=== PATIENT | female | born 1965 | race Caucasian/White ===

== ENCOUNTER 2017-06-14 00:01 | Emergency (ER) | payer BC ==
[2017-06-14 00:05] VITALS: RESP 18
--- NOTE | 2017-06-14 00:43 | ED ---
Fall HPI - General Chief Complaint: Fall Stated Complaint: fall Time Seen by Provider: 06/14/17 00:19 Source: patient, RN notes reviewed Mode of arrival: ambulatory - History of Present Illness Initial Comments: Patient is a 51-year-old female presents emergency room evaluation of fall injury. Patient states she was standing up after she shouldn't have been standing on and fell landing directly on her tailbone. Patient states she feels very nauseous after the incident happened. Patient denies head trauma. Patient denies headache, dizziness, chest pain, shortness of breath. Patient states she's continued having pain and swelling over her tailbone. Patient denies any numbness or tingling going down her legs. Patient denies saddle anesthesia. Patient denies urinary or fecal incontinence. Patient denies taking anything for pain after the incident. Patient states the incident happened about 2 hours ago. - Related Data Home Medications Medication Instructions Recorded Confirmed Venlafaxine HCl [Effexor] 22 mg PO QAM 08/02/14 08/03/14 Rizatriptan Benzoate [Maxalt] 10 mg PO Q12HR PRN 08/03/14 08/03/14 Previous Rx's Medication Instructions Recorded Acetaminophen with Codeine 1 tab PO Q4H PRN #12 tab 06/14/17 [Tylenol w/codeine #3] Allergies Allergy/AdvReac Type Severity Reaction Status Date / Time No Known Allergies Allergy Verified 06/14/17 00:05 Review of Systems ROS Statement: Those systems with pertinent positive or pertinent negative responses have been documented in the HPI. ROS Other: All systems not noted in ROS Statement are negative. Past Medical History Additional Past Medical History / Comment(s): PELVIC PAIN, BLOOD TO STOOL X 1, HAVING FEELING OF NOT EMPTYING BOWEL, STEROID W/IN 3 MOS History of Any Multi-Drug Resistant Organisms: None Reported Past Surgical History: Tubal Ligation Additional Past Surgical History / Comment(s): MONARC PROCEDURE, CYSTOSCOPY Past Anesthesia/Blood Transfusion Reactions: Motion Sickness, Postoperative Nausea & Vomiting (PONV) Past Psychological History: Depression Smoking Status: Never smoker Past Alcohol Use History: None Reported Past Drug Use History: None Reported General Exam - General Exam Comments Initial Comments: Sitting in exam room, no acute distress. Limitations: no limitations General appearance: alert, in no apparent distress Head exam: Present: atraumatic, normocephalic, normal inspection Eye exam: Present: normal appearance ENT exam: Present: normal exam Neck exam: Present: normal inspection Respiratory exam: Present: normal lung sounds bilaterally. Absent: respiratory distress Cardiovascular Exam: Present: regular rate, normal rhythm, normal heart sounds Extremities exam: Present: normal inspection Back exam: Present: vertebral tenderness (Swelling, tenderness and bruising over coccyx bone) Neurological exam: Present: alert, oriented X3, CN II-XII intact, normal gait Psychiatric exam: Present: normal affect, normal mood Skin exam: Present: warm, dry, intact, normal color. Absent: rash Course Vital Signs 06/14/17 06/14/17 00:02 02:41 Temperature 98.1 F 98.7 F Pulse Rate 76 79 Respiratory 18 18 Rate Blood Pressure 124/76 113/73 O2 Sat by Pulse 100 99 Oximetry Medical Decision Making - Medical Decision Making Patient is a 51-year-old female presents emergency room for evaluation of fall injury. Patient complaining of tailbone pain. X-ray showed no acute findings. Patient does have significant swelling and bruising of the tailbone. Even though x-ray negative for any acute fractures, possible suspected fracture of the coccyx bone. Patient advised follow-up with personnel security specialist. Patient is sent home with pain medications. Patient states she understands everything that was discussed with her. Return parameters discussed. Case discussed with Dr. Abraham. - Radiology Data Radiology results: report reviewed, image reviewed Disposition Clinical Impression: Coccyx contusion, Fall Disposition: HOME SELF-CARE Condition: Good Instructions: Coccyx Injury (ED) Additional Instructions: Tylenol or Motrin as needed for discomfort. Ice on and off for 10-15 minutes for the next 24-48 hours. Please follow-up with personnel security specialist for further evaluation. If new symptoms develop or symptoms worsen, please return to the ER. Prescriptions: Acetaminophen with Codeine [Tylenol w/codeine #3] 1 tab PO Q4H PRN #12 tab PRN Reason: Pain Referrals: Micheal Malave PAC [PHYSICIAN [employer]OR] - 1-2 days Time of Disposition: 02:33
--- NOTE | 2017-06-14 02:13 | XR ---
EXAM: XR Lumbar Spine, 4 or 5 Views CLINICAL HISTORY: Reason: Pain TECHNIQUE: Frontal, lateral and oblique views of the lumbar spine. COMPARISON: Radiographs lumbar spine, 10/02/2011. FINDINGS: Vertebrae: Vertebral body heights are maintained. Lumbar spine is well aligned. Vertical lucency through the left transverse process of L1, also seen on 10/02/11, although more apparent on today's exam. Disc spaces: No acute findings. Soft tissues: Unremarkable. IMPRESSION: 1. Vertical lucency through the left transverse process of L1, also seen on 10/02/11, although more apparent on today's exam. This is favored to be chronic but correlate for any focal tenderness. 2. Vertebral body heights and alignment are maintained.
--- NOTE | 2017-06-14 02:30 | XR ---
EXAM: XR Sacrum and Coccyx, 2 or more Views CLINICAL HISTORY: Reason: Pain TECHNIQUE: Frontal and lateral views of the sacrum and coccyx. COMPARISON: No relevant prior studies available. FINDINGS: Sacrum/coccyx: Unremarkable as visualized. No acute fracture detected. IMPRESSION: No radiographic evidence for acute fracture.
[2017-06-14] MEDS ORDERED: ACET/COD 300 MG/30 MG STARTER PACK 6 TAB BTL PO STA (02:38)
[2017-06-14] MEDS ORDERED: ONDANSETRON 4 MG ODT STARTER PACK 2 TAB BTL PO STA (02:39)
[2017-06-14 02:43] VITALS: BP 113/73; PULSE 79; TEMP 98.7
== END 2017-06-14 02:56 | disposition home or self-care (01) ==
LOC: EC 00:01
DX: S30.0XXA Contusion of lower back and pelvis, initial encounter (principal); R11.0 Nausea; F32.9 Major depressive disorder, single episode, unspecified; Z79.899 Other long term (current) drug therapy; W17.89XA Other fall from one level to another, initial encounter; Y92.009 Unspecified place in unspecified non-institutional (private) residence as the place of occurrence of the external cause
CPT/HCPCS: 99283; 72110; 72220; S0119

== ENCOUNTER 2018-01-24 11:56 | Emergency (ER) | payer BC ==
[2018-01-24] MEDS ORDERED: ASPIRIN 81 MG PO STA (12:25)
[2018-01-24 12:29] VITALS: RESP 16
[2018-01-24 12:39] LABS: Basophils % (A) 1 %; Eosinophils # (A) 0.1 k/uL (0-0.7); Eosinophils % (A) 2 %; HCT 40.2 % (34.0-46.0); HGB 13.3 gm/dL (11.4-16.0); Lymphocytes # (A) 1.6 k/uL (1.0-4.8); Lymphocytes % (A) 39 %; MCH 28.9 pg (25.0-35.0); MCV 87.5 fL (80.0-100.0); Mean Platelet Volume 8.1; Monocytes # (A) 0.3 k/uL (0-1.0); Monocytes % (A) 8 %; Neutrophils % (A) 47 %; Platelet Count 183 k/uL (150-450); RBC 4.59 m/uL (3.80-5.40); RDW 12.7 % (11.5-15.5); WBC 4.2 k/uL (3.8-10.6)
--- NOTE | 2018-01-24 12:49 | XR ---
EXAMINATION TYPE: XR chest 2V DATE OF EXAM: 01/24/2018 COMPARISON: 01/20/2013 TECHNIQUE: PA and lateral views submitted. HISTORY: Chest pain FINDINGS: The lungs are clear and there is no pneumothorax, pleural effusion, or focal pneumonia. Hyperinflat ion compatible COPD. Biapical pleural thickening. Degenerative change of the spine. IMPRESSION: 1. No acute process. Diffuse emphysematous changes correlate for COPD.
[2018-01-24 12:52] LABS: Partial Thromboplastin Time 23.4 sec (22.0-30.0); Prothrombin Time 9.8 sec (9.0-12.0)
[2018-01-24 12:55] LABS: ALT 30 U/L (9-52); AST 28 U/L (14-36); Albumin 4.8 g/dL (3.5-5.0); Alkaline Phosphatase 79 U/L (38-126); Anion Gap 12 mmol/L; Blood Urea Nitrogen 16 mg/dL (7-17); Calcium 10.6 mg/dL (8.4-10.2); Carbon Dioxide 28 mmol/L (22-30); Chloride 102 mmol/L (98-107); Glucose 91 mg/dL (74-99); Lipase 106 U/L (23-300); Magnesium 1.9 mg/dL (1.6-2.3); Potassium 4.3 mmol/L (3.5-5.1); Sodium 142 mmol/L (137-145); Total Bilirubin 0.9 mg/dL (0.2-1.3); Total Protein 8.3 g/dL (6.3-8.2)
--- NOTE | 2018-01-24 14:09 | ED ---
Chest Pain HPI - General Chief Complaint: Chest Pain Stated Complaint: CHEST PAIN Time Seen by Provider: 01/24/18 12:13 Source: patient Mode of arrival: ambulatory Limitations: no limitations - History of Present Illness Initial Comments: Patient complains of chest pain. Pain is in the middle of the chest. It radiates to her left arm and jaw. She has no shortness of breath. She has no pain or swelling in the arms or legs. She has no palpitations. She has no headache. She does not recall any specific exacerbating or relieving factors. She has no nausea or vomiting. She has no sick contacts or travel. - Related Data Home Medications Medication Instructions Recorded Confirmed Ginseng 100 mg PO DAILY 01/24/18 01/24/18 Multivitamins, Thera [Multivitamin 1 tab PO DAILY 01/24/18 01/24/18 (formulary)] [place]-3 Fatty Acids/Fish Oil [Fish 1 cap PO DAILY 01/24/18 01/24/18 Oil 1,000 mg Softgel] Venlafaxine HCl ER [Effexor XR] 37.5 mg PO DIRECTED 01/24/18 01/24/18 Allergies Allergy/AdvReac Type Severity Reaction Status Date / Time No Known Allergies Allergy Verified 01/24/18 12:27 Review of Systems ROS Statement: Those systems with pertinent positive or pertinent negative responses have been documented in the HPI. ROS Other: All systems not noted in ROS Statement are negative. EKG Findings - EKG Comments: EKG Findings:: Twelve-lead EKG shows ventricular rate 63 bpm, normal [place] interval , normal QS complexes, no ST elevation or depression, interpreted by me as normal sinus rhythm. Past Medical History Additional Past Medical History / Comment(s): PELVIC PAIN, BLOOD TO STOOL X 1, HAVING FEELING OF NOT EMPTYING BOWEL, STEROID W/IN 3 MOS History of Any Multi-Drug Resistant Organisms: None Reported Past Surgical History: Tubal Ligation Additional Past Surgical History / Comment(s): MONARC PROCEDURE, CYSTOSCOPY bladder sling Past Anesthesia/Blood Transfusion Reactions: Motion Sickness, Postoperative Nausea & Vomiting (PONV) Past Psychological History: Depression Smoking Status: Never smoker Past Alcohol Use History: None Reported Past Drug Use History: None Reported General Exam Limitations: no limitations General appearance: alert, in no apparent distress Head exam: Present: atraumatic, normocephalic, normal inspection Eye exam: Present: normal appearance, PERRL, EOMI. Absent: scleral icterus, conjunctival injection, periorbital swelling ENT exam: Present: normal exam, mucous membranes moist Neck exam: Present: normal inspection. Absent: tenderness, meningismus, lymphadenopathy Respiratory exam: Present: normal lung sounds bilaterally. Absent: respiratory distress, wheezes, rales, rhonchi, stridor Cardiovascular Exam: Present: regular rate, normal rhythm, normal heart sounds. Absent: systolic murmur, diastolic murmur, rubs, gallop, clicks GI/Abdominal exam: Present: soft, normal bowel sounds. Absent: distended, tenderness, guarding, rebound, rigid Extremities exam: Present: normal inspection, full ROM, normal capillary refill. Absent: tenderness, pedal edema, joint swelling, calf tenderness Back exam: Present: normal inspection Neurological exam: Present: alert, oriented X3, CN II-XII intact Psychiatric exam: Present: normal affect, normal mood Skin exam: Present: warm, dry, intact, normal color. Absent: rash Course Vital Signs 01/24/18 01/24/18 12:04 12:28 Temperature 97.7 F Pulse Rate 91 85 Respiratory 18 16 Rate Blood Pressure 134/78 127/85 O2 Sat by Pulse 100 100 Oximetry Chest Pain MDM - MDM Patient complains of chest pain. I am concern for ACS. Patient states she hasn 't family history of cardiac disease. Patient will be admitted for observation. Disposition Clinical Impression: Chest pain Disposition: ADMITTED IP TO THIS [facility] Condition: Fair Instructions: Chest Pain (ED) Referrals: None,Stated [Primary Care Provider] - 1-2 days Time of Disposition: 14:08
[2018-01-24 15:23] VITALS: PULSE 81
--- NOTE | 2018-01-24 15:30 | P.HPIM ---
History of Present Illness H&P Date: 01/24/18 Chief Complaint: chest pain Patient is a 52-year-old female with a past medical history of depression who presented to the emergency department with complaints of chest pain. In the ER she underwent an extensive evaluation. On arrival her vital signs were within normal limits. Laboratory analysis was unremarkable. Troponin was negative. Chest x-ray showed possible emphysematous changes. EKG revealed normal sinus rhythm at a rate of [address]-T wave changes, normal intervals, normal axis. Patient was seen and examined at bedside and emergency department. She is wanting to go home and have outpatient stress testing done. She states that for the last 2 weeks she's been having intermittent chest pain. She states she had a similar event in her 20s and went through cardiac testing all of which was negative. She can describes left-sided chest pain that feels like pinching. She states that it has been radiating to her left arm and left jaw intermittently. She describes a toothache. She states it happened last night and then again this morning. She states last night she may have been short of breath that she is unsure. She denies any significant shortness of breath, lightheadedness, dizziness, numbness, tingling, diaphoresis , and syncope. She states it's been happening 2-3 times daily. She states that it lasts only a few minutes when it comes on. She states it is intermittent and there is nothing that precipitates it. It resolved spontaneously. She does not take any daily aspirin. She states that she decided come to the hospital today she was in a meeting and they stated that a coworker had suddenly, they thought it was from heart disease and she got nervous and decided to come to the hospital. She has seen Dr. Tong in the past but has not needed to see him consistently secondary to not having no chronic medical conditions. About 6 months ago she has been trying to come off of her Effexor and now taking 37.5 mg 2 days on one day off. She denies any significant family history of coronary artery disease or myocardial infarction. Her father did have carotid disease. Review of Systems General: no fever/chills, no rigors, no weight loss/weight gain, no unusual fatigue Eyes: no noticeable visual changes, no loss of vision ENT: no rhinorrhea, no congestion, no sore throat Cardiovascular: + chest pain, + intermittent left arm pain, no palpitations, no preyncope/syncope, no edema Pulmonary: no shortness of breath, no wheezing, no cough Abdominal: no abdominal pain, no constipation, no diarrhea, no vomiting, no nausea Genitourinary: no dysuria, no urinary frequency, no unusual discharge/odor Neuro: no unusual paresthesias, no unusual paresis/paralysis, no headache Dermatologic: no unusual rashes, no unusual lesions, no unusual changes in nails Hematologic: no hemoptysis, no hematuria, no melena/hematochezia Psychiatric: no changes in mood or behaviors, no changes in sleep pattern Past Medical History Additional Past Medical History / Comment(s): depression History of Any Multi-Drug Resistant Organisms: None Reported Past Surgical History: Tubal Ligation Additional Past Surgical History / Comment(s): MONARC PROCEDURE, CYSTOSCOPY, bladder sling, colonoscopy Past Anesthesia/Blood Transfusion Reactions: Motion Sickness, Postoperative Nausea & Vomiting (PONV) Past Psychological History: Depression Smoking Status: Never smoker Past Alcohol Use History: None Reported Past Drug Use History: None Reported - Past Family History Father Additional Family Medical History / Comment(s): carotid artery disease. No family history of coronary artery disease Medications and Allergies Home Medications Medication Instructions Recorded Confirmed Type Ginseng 100 mg PO DAILY 01/24/18 01/24/18 History Multivitamins, Thera [Multivitamin 1 tab PO DAILY 01/24/18 01/24/18 History (formulary)] [place]-3 Fatty Acids/Fish Oil [Fish 1 cap PO DAILY 01/24/18 01/24/18 History Oil 1,000 mg Softgel] Venlafaxine HCl ER [Effexor XR] 37.5 mg PO DIRECTED 01/24/18 01/24/18 History Allergies Allergy/AdvReac Type Severity Reaction Status Date / Time No Known Allergies Allergy Verified 01/24/18 12:27 Physical Exam Osteopathic Statement: *. No significant issues noted on an osteopathic structural exam other than those noted in the History and Physical/Consult. Vitals: Vital Signs Temp Pulse Resp BP Pulse Ox 01/24/18 14:18 76 16 124/84 98 01/24/18 12:28 85 16 127/85 100 01/24/18 12:04 97.7 F 91 18 134/78 100 Intake and Output 01/24/18 01/24/18 01/24/18 06:59 14:59 22:59 Other: Weight 50.349 kg Patient Weight 01/25/18 06:59 Weight 50.349 kg General: non toxic, no distress, appears at stated age, underweight Derm: no unusual rashes/lesions no unusual ecchymoses, warm, dry Head: atraumatic, normocephalic, symmetric Eyes: EOMI, no lid lag, anicteric sclera, pupils equal round reactive to light ENT: Nose and ears atraumatic, no thrush, no pharyngeal erythema Neck: No thyromegaly, no cervical lymphadenopathy, trachea midline, supple Mouth: no lip lesion, mucus membranes moist Cardiovascular: S1S2 reg, no murmur, positive posterior tibial pulse bilateral, no edema, capillary refill less than 2 seconds Lungs: CTA bilateral, no rhonchi, no rales , no accessory muscle use Abdominal: soft, nontender to palpation, no guarding, no appreciable organomegaly, normal bowel sounds Ext: no gross muscle atrophy, muscle strength 5 out of 5 in all 4 extremities grossly, no contractures, Neuro: CN II-XI grossly intact, light touch intact all 4 extremities, finger to nose within normal limits, Psych: Alert, oriented, appropriate affect Results CBC & Chem 7: 01/24/18 12:20 01/24/18 12:20 Labs: Abnormal Lab Results - Last 24 Hours (Table) 01/24/18 Range/Units 12:20 Creatinine 0.50 L (0.52-1.04) mg/dL Calcium 10.6 H (8.4-10.2) mg/dL Total Protein 8.3 H (6.3-8.2) g/dL Chest x-ray: report reviewed, image reviewed Thrombosis Risk Factor Assmnt - DVT/VTE Prophylaxis DVT/VTE Prophylaxis: Low risk, early ambulation encouraged - Choose All That Apply Each Factor Represents 1 point: Age 41-60 years Thrombosis Risk Factor Assessment Total Risk Factor Score: 1 Thrombosis Risk Factor Assessment Level: Low Risk Assessment and Plan Assessment: Chest pain, low risk - NAVDEEP score 0, based on first troponin, HEART Score 1 -EKG with no significant changes -Discussed with patient that ideally she should stay overnight to have a stress test done as she has not seen Dr. De Santiago in quite some time and she does not follow with her windows consultant. Patient is reluctant to stay overnight. I have discussed with her the fact that without a stress test I cannot tell her the likelihood of coronary artery disease and that if she goes home she does have a risk of myocardial infarction and coronary artery disease. She is aware of this but feels that she can manage as an outpatient. She states she is set up her own stress test in the past with the windows consultant as I have suggested for her to call her primary care doctor first. She would like to be discharged and followed as outpatient. With her NAVDEEP risk score of 0 and her heart score 1 she does have a less than 5% chance of a cardiovascular event in the next 14 days. I have been able to set up an appointment for her on February 15 with the windows consultant. We will await repeat troponin testing if that is negative plan on discharge home. I've again asked the patient to stay, but she does not feel it is necessary at this time. Depression -Continue with Effexor regiment Discussed with: [Patient, nursing, ED physician] Anticipated discharge: today Anticipated discharge place: home A total of 75 minutes was spent on the care of this complex patient more than 50 % of the time was spent in counseling and care coordination.
[2018-01-24 16:21] VITALS: BP 111/82; TEMP 98
--- NOTE | 2018-01-24 17:34 | P.DS ---
Providers Date of admission: 01/24/18 14:09 Expected date of discharge: 01/24/18 Attending physician: Cassy Garner DO Consults: none Primary care physician: Stated None - Discharge Diagnosis(es) (1) Chest pain Current Visit: Yes Status: Acute Hospital Course: Patient is a 52-year-old female with a past medical history of depression who presented to the emergency department with complaints of chest pain. In the ER she underwent an extensive evaluation. On arrival her vital signs were within normal limits. Laboratory analysis was unremarkable. Troponin was negative. Chest x-ray showed possible emphysematous changes. EKG revealed normal sinus rhythm at a rate of [address]-T wave changes, normal intervals, normal axis. She was given a dose of aspirin and arrangements were made for admission for observation. I went to see her for history and physical and she stated she did not want to stay in the hospital. She went have an outpatient stress test done. Her heart score was 1 and NAVDEEP risk score 0. We discussed that without a stress test OB difficult to determine if she has coronary artery disease, but her risk is low. We did discuss that she could be discharged home for follow-up if second troponin was negative. The first cardiology appointment we could get her was on February 15. Her second troponin came back negative and she was therefore determined to be able to discharge home. Pertinent Studies: None Procedures: None Patient Condition at Discharge: Fair Plan - Discharge Summary New Discharge Prescriptions: No Action Venlafaxine HCl ER [Effexor XR] 37.5 mg PO DIRECTED Multivitamins, Thera [Multivitamin (formulary)] 1 tab PO DAILY Ginseng 100 mg PO DAILY [place]-3 Fatty Acids/Fish Oil [Fish Oil 1,000 mg Softgel] 1 cap PO DAILY Discharge Medication List Ginseng 100 mg PO DAILY 01/24/18 [History] Multivitamins, Thera [Multivitamin (formulary)] 1 tab PO DAILY 01/24/18 [History ] [place]-3 Fatty Acids/Fish Oil [Fish Oil 1,000 mg Softgel] 1 cap PO DAILY [History] Venlafaxine HCl ER [Effexor XR] 37.5 mg PO DIRECTED 01/24/18 [History] Follow up Appointment(s)/Referral(s): Mdadie Tong MD [REFERRING] - 1-2 Days None,Stated [Primary Care Provider] - 1-2 days Elham Gore MD [STAFF PHYSICIAN] - 02/15/18 10:00 am Patient Instructions/Handouts: Chest Pain (ED) Activity/Diet/Wound Care/Special Instructions: If chest pain reoccurs please seek immediate medical attention and do not wait for cardiology appointment. Discharge Disposition: HOME SELF-CARE
== END 2018-01-24 16:21 | disposition other institution (70) ==
LOC: EC 11:56 → UNDOADMOB 14:09 → 3OBS 14:09
DX: R07.9 Chest pain, unspecified (principal); F32.9 Major depressive disorder, single episode, unspecified; Z79.899 Other long term (current) drug therapy
CPT/HCPCS: 36415; 71046; 80053; 83690; 83735; 83880; 84484; 85025; 85610; 85730; 93005; 99285

== ENCOUNTER → 2018-09-20 | Outpatient (CLI) | payer BC ==
--- NOTE | 2018-09-21 08:08 | XR ---
EXAMINATION TYPE: XR KUB DATE OF EXAM: 09/20/2018 COMPARISON: NONE HISTORY: Pain TECHNIQUE: One view abdominal series FINDINGS: The osseous structures are intact. The bowel gas pattern is nonspecific. Lung bases are clear. Curv ature of the spine noted. Calcifications in the pelvis are nonspecific but likely vascular. IMPRESSION: 1. Nonspecific abdomen.
== END | disposition home or self-care (01) ==
LOC: RADXRMAIN 18:11
PROVIDERS: ATTEND Urology
DX: Z09 Encounter for follow-up examination after completed treatment for conditions other than malignant neoplasm (principal); Z87.442 Personal history of urinary calculi
CPT/HCPCS: 74018

== ENCOUNTER → 2019-08-03 | Outpatient (CLI) | payer BC ==
--- NOTE | 2019-08-07 10:29 | MM ---
Reason for exam: screening (asymptomatic). Last mammogram was performed 3 years and 11 months ago. History: Patient is postmenopausal. Family history of breast cancer in grandmother at age 70. Taking estrogen. Physical Findings: A clinical breast exam by your physician is recommended on an annual basis and results should be correlated with mammographic findings. MG 3D Screening Mammo W/Cad Bilateral CC and MLO view(s) were taken. Prior study comparison: September 13, 2015, bilateral MG screening mammo w CAD. December 15, 2013, bilateral digital screening mammo w/CAD. The breast tissue is heterogeneously dense. This may lower the sensitivity of mammography. Focal asymmetry left breast, stable. No significant changes when compared with prior studies. ASSESSMENT: Benign, BI-RAD 2 RECOMMENDATION: Routine screening mammogram of both breasts in 1 year.
== END ==
LOC: RADMAMWWP 12:48
PROVIDERS: ATTEND Obstetrics & Gynecology
DX: Z12.31 Encounter for screening mammogram for malignant neoplasm of breast (principal)
CPT/HCPCS: 77063; 77067

== ENCOUNTER 2019-09-20 08:22 | Day surgery (SDC) | payer BC ==
[2019-09-19 12:02] VITALS: BMI 18.1
[~2019-09-20 08:22] MED LIST: LACTATED RINGERS 1,000 ML IV SCH; LIDOCAINE 1% 20 ML VIAL (10MG/ML) FOR IV START INTRADERMA PRN
[2019-09-20 08:50] VITALS: TEMP 97.9
[2019-09-20] MEDS ORDERED: PROPOFOL 10 MG/ML 20 ML VIAL IV ONE (09:08)
--- NOTE | 2019-09-20 09:21 | P.PCN ---
Date of Procedure: 09/20/19 Procedure(s) Performed: BRIEF HISTORY: Patient is a 54-year-old, pleasant, epigastric fullness, epigastric discomfort and early satiety for the last 4 months duration. She has some nausea but no emesis. Possible 10 pounds of weight in the last 6 months. PROCEDURE PERFORMED: Esophagogastroduodenoscopy with biopsy. PREOPERATIVE DIAGNOSIS: Gastric pain/epigastric fullness. IV sedation per anesthesia. PROCEDURE: After informed consent was obtained, the patient was brought into the endoscopy unit. IV sedation was administered by Anesthesia under continuous monitoring. Initially the Olympus GIF-140 video endoscope was inserted into the mouth. Esophagus intubated without any difficulty. It was gradually advanced into the stomach and duodenum and carefully examined. The bulb and the second part of the duodenum appeared normal. The scope at this time was withdrawn to the stomach, adequately insufflated with air, and upon careful examination, mucosa of the antrum@gastritis and biopsies were done from this area. The, body, cardia and the fundus appeared normal. The scope was then withdrawn into the esophagus. The GE junction was located at 39 cm from the incisors. Small hiatal hernia noted. There were linear erosions in the distal esophagus consistent with LA grade B reflux esophagitis. Rest of esophagus appeared normal and the patient tolerated the procedure well. IMPRESSION: 1. Mild antral gastritis. 2. Small hiatal hernia and LA grade B reflux esophagitis. RECOMMENDATIONS: The findings of this examination were discussed with the patient as well as a family. She was advised to follow with the biopsy results. She'll be given a trial of Prilosec 20 mg daily for 2-3 months.
[2019-09-20 09:27] VITALS: RESP 16
[2019-09-20 10:02] VITALS: BP 98/70; PULSE 71
== END 2019-09-20 10:18 | disposition home or self-care (01) ==
LOC: ORWHC2ENDO 08:22
PROVIDERS: ATTEND Internal Medicine Gastroenterology
DX: K29.50 Unspecified chronic gastritis without bleeding (principal); K44.9 Diaphragmatic hernia without obstruction or gangrene; K21.0 Gastro-esophageal reflux disease with esophagitis; R68.81 Early satiety; F32.9 Major depressive disorder, single episode, unspecified; Z79.899 Other long term (current) drug therapy; Z98.51 Tubal ligation status
CPT/HCPCS: 88305; 43239; J2704

== ENCOUNTER → 2019-12-09 | Outpatient (CLI) | payer BC ==
[2019-12-09 12:27] LABS: Basophils % (A) 1 %; Eosinophils # (A) 0.1 k/uL (0-0.7); Eosinophils % (A) 3 %; HCT 40.7 % (34.0-46.0); HGB 13.1 gm/dL (11.4-16.0); Lymphocytes # (A) 1.5 k/uL (1.0-4.8); Lymphocytes % (A) 36 %; MCH 28.8 pg (25.0-35.0); MCHC 32.2 g/dL (31.0-37.0); MCV 89.5 fL (80.0-100.0); Mean Platelet Volume 7.7; Monocytes # (A) 0.4 k/uL (0-1.0); Monocytes % (A) 9 %; Neutrophils # (A) 2.2 k/uL (1.3-7.7); Neutrophils % (A) 50 %; Platelet Count 234 k/uL (150-450); RBC 4.54 m/uL (3.80-5.40); RDW 11.8 % (11.5-15.5); WBC 4.3 k/uL (3.8-10.6)
[2019-12-09 16:52] LABS: ALT 18 U/L (8-44); AST 22 U/L (13-35); African American GFR (CKD) 113.8 (60.0-200.0); Alkaline Phosphatase 76 U/L (41-126); BUN/Creat Ratio 21.43 Ratio (12.00-20.00); Calcium 9.6 mg/dL (8.7-10.3); Carbon Dioxide 27.7 mmol/L (21.6-31.8); Chloride 104 mmol/L (96-109); Chol/HDL Ratio 2.96; Cholesterol 163 mg/dL (0-200); Globulin 2.3 g/dL (1.6-3.3); Glucose 82 mg/dL (70-110); Non-African American GFR(CKD) 98.2 (60.0-200.0); Potassium 4.1 mmol/L (3.5-5.5); Sodium 140 mmol/L (135-145); Total Bilirubin 1.1 mg/dL (0.2-1.2); Total Protein 6.9 g/dL (6.2-8.2); Triglycerides <50.0 mg/dL (0.0-149.0)
== END | disposition home or self-care (01) ==
LOC: LABWHC1 11:51
PROVIDERS: ATTEND Family Medicine
DX: Z13.220 Encounter for screening for lipoid disorders (principal); E55.9 Vitamin D deficiency, unspecified; K21.0 Gastro-esophageal reflux disease with esophagitis; K29.50 Unspecified chronic gastritis without bleeding; R10.816 Epigastric abdominal tenderness; R63.4 Abnormal weight loss
CPT/HCPCS: 36415; 80053; 80061; 82306; 84443; 85025

== ENCOUNTER → 2020-01-12 | Outpatient (CLI) | payer BC ==
--- NOTE | 2020-01-13 16:34 | US ---
EXAMINATION TYPE: US kidneys/renal and bladder DATE OF EXAM: 01/12/2020 COMPARISON: NONE CLINICAL HISTORY: K21.0 GERD,R10.33 Periumbilical painR63.4. Patient stated brother has thoracic aort ic aneurysm and today's US is for exam of abdominal aorta, with physician's order also requesting jose dder and kidney US. EXAM MEASUREMENTS: Right Kidney: 10.2 x 6.3 x 3.7 cm Left Kidney: 10.2 x 5.0 x 4.9 cm Post Void Residual Volume: 0 mL Aorta US: aorta size is wnl throughout with some mild intimal wall thickening noted distally. Right Kidney: No hydronephrosis or masses seen Left Kidney: No hydronephrosis or masses seen; lower pole hyperechoic vessel li noted suggests vas cular calcification Bladder: wnl Bilateral Jets seen: yes Normal Post Void Residual: yes, as bladder completely emptied. IMPRESSION: 1. Normal renal ultrasound 2. No abdominal aortic aneurysm
== END | disposition home or self-care (01) ==
LOC: RADUSWWP 16:27
PROVIDERS: ATTEND Family Medicine
DX: K21.0 Gastro-esophageal reflux disease with esophagitis (principal); R63.4 Abnormal weight loss; R10.33 Periumbilical pain
CPT/HCPCS: 76770

== ENCOUNTER → 2020-08-07 | Outpatient (CLI) | payer BC ==
--- NOTE | 2020-08-07 13:51 | FL ---
EXAMINATION TYPE: FL barium swallow w video DATE OF EXAM: 08/07/2020 COMPARISON: NONE HISTORY: Dysphasia TECHNIQUE: Fluoroscopy. FINDINGS: Fluoroscopic guidance was provided for the procedure performed in conjunction with the [facility] pathology department. Please see complete report forthcoming from the Speech Pathology departmen t. Various consistencies from thin liquid to solids were administered. Fluoroscopy time 59 seconds. Number of images: 0. No aspiration or penetration was evident. No significant pooling was observed in the vallecula. There was normal propulsion of the bolus. If further evaluation would be of benefit, esophagram could be utilized to evaluate for presbyesophagus. IMPRESSION: 1. Normal modified barium swallow.
== END | disposition home or self-care (01) ==
LOC: RADFLMAIN 08:36
PROVIDERS: ATTEND Family Medicine
DX: R13.10 Dysphagia, unspecified (principal)
CPT/HCPCS: 74230

== ENCOUNTER → 2020-08-07 | Outpatient (CLI) | payer BC ==
--- NOTE | 2020-08-07 09:20 | US ---
EXAMINATION TYPE: US abdomen limited DATE OF EXAM: 08/07/2020 COMPARISON: NONE CLINICAL HISTORY: [id number] EPIGASTRIC ABD TENDERNESS,[id number] RUQ TENDERNESS. pinching sensation in RUQ, nausea, difficulty swallowing, fullness EXAM MEASUREMENTS: Liver Length: 13.6 cm Gallbladder Wall: 0.2 cm CBD: 0.4 cm Right Kidney: 9.5 x 5.2 x 3.7 cm Pancreas: wnl Liver: wnl Gallbladder: wnl Evidence for sonographic Turner's sign: no CBD: wnl Right Kidney: wnl IMPRESSION: Negative
== END | disposition home or self-care (01) ==
LOC: RADUSWWP 08:37
PROVIDERS: ATTEND Family Medicine
DX: R10.811 Right upper quadrant abdominal tenderness (principal); R10.816 Epigastric abdominal tenderness; K21.0 Gastro-esophageal reflux disease with esophagitis
CPT/HCPCS: 76705

== ENCOUNTER → 2020-08-23 | Outpatient (CLI) | payer BC ==
--- NOTE | 2020-08-23 10:34 | FL ---
EXAMINATION TYPE: FL barium swallow DATE OF EXAM: 08/23/2020 CLINICAL HISTORY: Dysphagia. Recent weight loss. History of hiatal hernia. TECHNIQUE: A double contrast esophagram is performed utilizing air and barium. A total of 36 second s of fluoroscopic time was utilized during procedure. 39 spot images saved to PACS. Modified barium s [facility] August 07, 2020 COMPARISON: None FINDINGS: The esophagus shows satisfactory motility and emptying into the stomach when drinking uprig ht. Some stasis when drinking prone noted. No evidence of fixed hiatal hernia or stricture noted. No suspicious intraluminal mass. No diverticulum. No significant gastroesophageal reflux was seen ann cheng real time performance of this study. IMPRESSION: No significant abnormality is seen to account for patient's symptoms.
== END | disposition home or self-care (01) ==
LOC: RADUSWWP 09:23
PROVIDERS: ATTEND Family Medicine
DX: R13.19 Other dysphagia (principal)
CPT/HCPCS: 74220

== ENCOUNTER → 2020-11-01 | Outpatient (CLI) | payer BC ==
--- NOTE | 2020-11-05 12:23 | MM ---
Reason for exam: screening (asymptomatic). Last mammogram was performed 1 year and 3 months ago. History: Patient is postmenopausal. Family history of breast cancer in grandmother at age 70. Taking estrogen. Physical Findings: A clinical breast exam by your physician is recommended on an annual basis and results should be correlated with mammographic findings. MG 3D Screening Mammo W/Cad Bilateral CC and MLO view(s) were taken. Prior study comparison: August 03, 2019, bilateral MG 3d screening mammo w/cad. September 13, 2015, bilateral MG screening mammo w CAD. The breast tissue is heterogeneously dense. This may lower the sensitivity of mammography. No significant changes when compared with prior studies. ASSESSMENT: Negative, BI-RAD 1 RECOMMENDATION: Routine screening mammogram of both breasts in 1 year.
== END | disposition home or self-care (01) ==
LOC: RADMAMWWP 14:52
PROVIDERS: ATTEND Obstetrics & Gynecology
DX: Z12.31 Encounter for screening mammogram for malignant neoplasm of breast (principal); Z80.3 Family history of malignant neoplasm of breast
CPT/HCPCS: 77063; 77067

== ENCOUNTER 2021-03-03 02:12 | Emergency (ER) | payer BC ==
[2021-03-03 02:20] VITALS: TEMP 98.4
[2021-03-03] MEDS ORDERED: Acetaminophen-Codeine 300-30mg TAB PO STA (02:50)
--- NOTE | 2021-03-03 03:07 | ED ---
General Adult HPI - General Chief complaint: Back Pain/Injury Stated complaint: Body aches Time Seen by Provider: 03/03/21 02:26 Source: patient Mode of arrival: ambulatory Limitations: no limitations - History of Present Illness Initial comments: This patient is a 55-year-old woman who is here for evaluation of what sounds like a polyarthropathy. The patient states that over the past few days she has been having increasing joint pains. She indicates the wrists, hands and elbows, as well as the knees and hips. She states that she did have similar symptoms a couple months ago that had come on after doing yoga. She states that she had also been doing some yoga before that these came on over this is affecting more of her body. Onset/Timin -: days(s) Location: upper extremity, lower extremity Radiation: non-radiation Quality: aching Consistency: constant Improves with: none Worsens with: movement Associated Symptoms: denies other symptoms Treatments Prior to Arrival: NSAID - Related Data Home Medications Medication Instructions Recorded Confirmed Ginseng 100 mg PO DAILY 01/24/18 03/03/21 Multivitamins, Thera [Multivitamin 1 tab PO DAILY 01/24/18 03/03/21 (formulary)] [place]-3 Fatty Acids/Fish Oil [Fish 1 cap PO DAILY 01/24/18 03/03/21 Oil 1,000 mg Softgel] Calcium Carbonate [Calcium] 600 mg PO DAILY 09/19/19 03/03/21 Eye Vitamin 1 tab PO DAILY 09/19/19 03/03/21 Estrogens, Conjugated Cream 1 gm TOPICAL DAILY 03/03/21 03/03/21 [Premarin Cream] Omeprazole Magnesium [PriLOSEC OTC] 20 mg PO DAILY 03/03/21 03/03/21 Phenazopyridine [Pyridium] 100 mg PO TID PRN 03/03/21 03/03/21 Progesterone, Micronized 200 mg PO DAILY 03/03/21 03/03/21 [Progesterone] Sulfamethox-Tmp 800-160Mg [Bactrim 1 tab PO Q12HR 03/03/21 03/03/21 DS 800-160 mg] Previous Rx's Medication Instructions Recorded Acetaminophen-Codeine 300-30mg 1 tab PO Q4H PRN #20 tablet 03/03/21 [Tylenol w/codeine #3] Diclofenac Sodium [Voltaren] 25 mg PO TID #18 tablet. 03/03/21 Famotidine [Pepcid] 20 mg PO BID #14 tablet 03/03/21 Allergies Allergy/AdvReac Type Severity Reaction Status Date / Time No Known Allergies Allergy Verified 03/03/21 02:20 Review of Systems ROS Statement: Those systems with pertinent positive or pertinent negative responses have been documented in the HPI. ROS Other: All systems not noted in ROS Statement are negative. Constitutional: Denies: fever, chills Respiratory: Denies: cough, dyspnea Cardiovascular: Denies: chest pain, palpitations, edema Gastrointestinal: Denies: abdominal pain, nausea, vomiting, diarrhea Genitourinary: Reports: dysuria Musculoskeletal: Reports: back pain, arthralgia Skin: Denies: rash Neurological: Denies: headache, weakness, numbness Past Medical History Additional Past Medical History / Comment(s): frequent bladder infection, hiatal hernia History of Any Multi-Drug Resistant Organisms: None Reported Past Surgical History: Tubal Ligation Additional Past Surgical History / Comment(s): MONARC PROCEDURE, CYSTOSCOPY, bladder sling, colonoscopy,glaucoma procedures x2 Past Anesthesia/Blood Transfusion Reactions: Postoperative Nausea & Vomiting (PONV) Additional Past Anesthesia/Blood Transfusion Reaction / Comment(s): stated "son heart stopped during hernia repair-discharged home same day" Past Psychological History: Depression Smoking Status: Never smoker Past Alcohol Use History: None Reported Past Drug Use History: None Reported - Past Family History Father Additional Family Medical History / Comment(s): carotid artery disease. No family history of coronary artery disease General Exam Limitations: no limitations General appearance: alert, in no apparent distress Head exam: Present: atraumatic, normocephalic Neck exam: Present: normal inspection, full ROM. Absent: meningismus Respiratory exam: Present: normal lung sounds bilaterally. Absent: respiratory distress, wheezes, rales, rhonchi, stridor Cardiovascular Exam: Present: regular rate, normal rhythm, normal heart sounds. Absent: systolic murmur, diastolic murmur, rubs, gallop GI/Abdominal exam: Present: soft. Absent: distended, tenderness, guarding, rebound, rigid, mass Extremities exam: Present: normal inspection, normal capillary refill. Absent: pedal edema, calf tenderness Back exam: Present: normal inspection. Absent: CVA tenderness (R), CVA tenderness (L) Neurological exam: Present: alert. Absent: motor sensory deficit Skin exam: Present: warm, dry, intact, normal color. Absent: rash Course Vital Signs 03/03/21 02:14 Temperature 98.4 F Pulse Rate 86 Respiratory 18 Rate Blood Pressure 142/85 O2 Sat by Pulse 98 Oximetry Medical Decision Making - Lab Data Result diagrams: 03/03/21 03:04 03/03/21 03:04 Lab Results 03/03/21 03/03/21 03/03/21 Range/Units 03:04 03:04 03:04 WBC 5.4 (3.8-10.6) k/uL RBC 4.36 (3.80-5.40) m/uL Hgb 12.5 (11.4-16.0) gm/dL Hct 38.0 (34.0-46.0) % MCV 87.2 (80.0-100.0) fL MCH 28.8 (25.0-35.0) pg MCHC 33.0 (31.0-37.0) g/dL RDW 13.2 (11.5-15.5) % Plt Count 191 (150-450) k/uL MPV 8.2 Neutrophils % 68 % Lymphocytes % 15 % Monocytes % 3 % Eosinophils % 12 % Basophils % 0 % Neutrophils # 3.7 (1.3-7.7) k/uL Lymphocytes # 0.8 L (1.0-4.8) k/uL Monocytes # 0.2 (0-1.0) k/uL Eosinophils # 0.7 (0-0.7) k/uL Basophils # 0.0 (0-0.2) k/uL Sodium 134 L (137-145) mmol/L Potassium 4.0 (3.5-5.1) mmol/L Chloride 103 (98-107) mmol/L Carbon Dioxide 22 (22-30) mmol/L Anion Gap 9 mmol/L BUN 16 (7-17) mg/dL Creatinine 0.75 (0.52-1.04) mg/dL Est GFR (CKD-EPI)AfAm >90 (>60 ml/min/1.73 sqM) Est GFR (CKD-EPI)NonAf >90 (>60 ml/min/1.73 sqM) Glucose 103 H (74-99) mg/dL Calcium 9.3 (8.4-10.2) mg/dL Total Bilirubin 1.2 (0.2-1.3) mg/dL AST 26 (14-36) U/L ALT 16 (4-34) U/L Alkaline Phosphatase 85 (38-126) U/L C-Reactive Protein 1.5 H (<1.0) mg/dL Total Protein 6.8 (6.3-8.2) g/dL Albumin 3.8 (3.5-5.0) g/dL TSH 2.340 (0.465-4.680) mIU/L Urine Color Urine Appearance (Clear) Urine pH (5.0-8.0) Ur Specific [place] (1.001-1.035) Urine Protein (Negative) Urine Glucose (UA) (Negative) Urine Ketones (Negative) Urine Blood (Negative) Urine Nitrite (Negative) Urine Bilirubin (Negative) Urine Urobilinogen (<2.0) mg/dL Ur Leukocyte Esterase (Negative) Urine RBC (0-5) /hpf Urine WBC (0-5) /hpf Ur Squamous Epith Cells (0-4) /hpf Coronavirus (PCR) Not Detected (Not Detectd) 03/03/21 Range/Units 03:04 WBC (3.8-10.6) k/uL RBC (3.80-5.40) m/uL Hgb (11.4-16.0) gm/dL Hct (34.0-46.0) % MCV (80.0-100.0) fL MCH (25.0-35.0) pg MCHC (31.0-37.0) g/dL RDW (11.5-15.5) % Plt Count (150-450) k/uL MPV Neutrophils % % Lymphocytes % % Monocytes % % Eosinophils % % Basophils % % Neutrophils # (1.3-7.7) k/uL Lymphocytes # (1.0-4.8) k/uL Monocytes # (0-1.0) k/uL Eosinophils # (0-0.7) k/uL Basophils # (0-0.2) k/uL Sodium (137-145) mmol/L Potassium (3.5-5.1) mmol/L Chloride (98-107) mmol/L Carbon Dioxide (22-30) mmol/L Anion Gap mmol/L BUN (7-17) mg/dL Creatinine (0.52-1.04) mg/dL Est GFR (CKD-EPI)AfAm (>60 ml/min/1.73 sqM) Est GFR (CKD-EPI)NonAf (>60 ml/min/1.73 sqM) Glucose (74-99) mg/dL Calcium (8.4-10.2) mg/dL Total Bilirubin (0.2-1.3) mg/dL AST (14-36) U/L ALT (4-34) U/L Alkaline Phosphatase (38-126) U/L C-Reactive Protein (<1.0) mg/dL Total Protein (6.3-8.2) g/dL Albumin (3.5-5.0) g/dL TSH (0.465-4.680) mIU/L Urine Color Dark Brown Urine Appearance Clear (Clear) Urine pH 6.0 (5.0-8.0) Ur Specific [place] 1.004 (1.001-1.035) Urine Protein Negative (Negative) Urine Glucose (UA) Negative (Negative) Urine Ketones Negative (Negative) Urine Blood Negative (Negative) Urine Nitrite Positive H (Negative) Urine Bilirubin 1+ H (Negative) Urine Urobilinogen 2.0 (<2.0) mg/dL Ur Leukocyte Esterase Negative (Negative) Urine RBC 1 (0-5) /hpf Urine WBC 1 (0-5) /hpf Ur Squamous Epith Cells <1 (0-4) /hpf Coronavirus (PCR) (Not Detectd) Disposition Clinical Impression: Polyarthralgia Disposition: HOME SELF-CARE Condition: Good Instructions (If sedation given, give patient instructions): Arthralgia (ED) Prescriptions: Famotidine [Pepcid] 20 mg PO BID #14 tablet Acetaminophen-Codeine 300-30mg [Tylenol w/codeine #3] 1 tab PO Q4H PRN #20 tablet PRN Reason: Pain Diclofenac Sodium [Voltaren] 25 mg PO TID #18 tablet.dr Is patient prescribed a controlled substance at d/c from ED?: No Referrals: Nikunj Reilly DO [Primary Care Provider] - 1-2 days Alina Goetz MD [STAFF PHYSICIAN] - 1-2 days
[2021-03-03 03:33] LABS: Appearance,Urine Clear (Clear); Bilirubin,Urine 1+ (Negative); Blood,Urine Negative (Negative); Color,Urine Dark Brown; Glucose,Urine (UA) Negative (Negative); Ketones,Urine Negative (Negative); Leukocyte Esterase,Urine Negative (Negative); Nitrite,Urine Positive (Negative); Protein,Urine Negative (Negative); RBC,Urine 1 /hpf (0-5); Specific Gravity,Urine 1.004 (1.001-1.035); Squamous Epithelial Cell,Urine <1 /hpf (0-4); WBC,Urine 1 /hpf (0-5)
[2021-03-03 03:46] LABS: Basophils % (A) 0 %; Eosinophils # (A) 0.7 k/uL (0-0.7); Eosinophils % (A) 12 %; HGB 12.5 gm/dL (11.4-16.0); Lymphocytes # (A) 0.8 k/uL (1.0-4.8); Lymphocytes % (A) 15 %; MCH 28.8 pg (25.0-35.0); MCV 87.2 fL (80.0-100.0); Mean Platelet Volume 8.2; Monocytes # (A) 0.2 k/uL (0-1.0); Monocytes % (A) 3 %; Neutrophils # (A) 3.7 k/uL (1.3-7.7); Neutrophils % (A) 68 %; Platelet Count 191 k/uL (150-450); RBC 4.36 m/uL (3.80-5.40); RDW 13.2 % (11.5-15.5); WBC 5.4 k/uL (3.8-10.6)
[2021-03-03 03:48] LABS: ALT 16 U/L (4-34); AST 26 U/L (14-36); African American GFR (CKD) >90 (>60 ml/min/1.73 sqM); Albumin 3.8 g/dL (3.5-5.0); Alkaline Phosphatase 85 U/L (38-126); Anion Gap 9 mmol/L; Blood Urea Nitrogen 16 mg/dL (7-17); C Reactive Protein 1.5 mg/dL (<1.0); Calcium 9.3 mg/dL (8.4-10.2); Carbon Dioxide 22 mmol/L (22-30); Chloride 103 mmol/L (98-107); Glucose 103 mg/dL (74-99); Non-African American GFR(CKD) >90 (>60 ml/min/1.73 sqM); Sodium 134 mmol/L (137-145); Total Bilirubin 1.2 mg/dL (0.2-1.3); Total Protein 6.8 g/dL (6.3-8.2)
[2021-03-03 05:06] LABS: Erythrocyte Sedimentation Rate 15 mm/hr (0-20)
[2021-03-03 05:18] VITALS: BP 138/72; PULSE 72; RESP 16
[2021-03-03 10:49] LABS: Rheumatoid Factor, Qnt <4 IU/mL (0-15)
[2021-03-04 09:58] LABS: HLA B27 NEGATIVE
== END 2021-03-03 05:02 | disposition home or self-care (01) ==
LOC: EC 02:12
DX: M25.532 Pain in left wrist (principal); M25.531 Pain in right wrist; M25.542 Pain in joints of left hand; M25.541 Pain in joints of right hand; M25.522 Pain in left elbow; M25.521 Pain in right elbow; M25.562 Pain in left knee; M25.561 Pain in right knee; M25.552 Pain in left hip; M25.551 Pain in right hip; M54.9 Dorsalgia, unspecified; F32.9 Major depressive disorder, single episode, unspecified; Z79.899 Other long term (current) drug therapy; Z79.1 Long term (current) use of non-steroidal anti-inflammatories (NSAID); Z20.822 Contact with and (suspected) exposure to COVID-19
CPT/HCPCS: 36415; 80053; 81001; 84443; 85025; 85652; 86038; 86140; 86431; 86812; 87635; 99283

== ENCOUNTER → 2021-03-06 | Outpatient (CLI) | payer BC ==
--- NOTE | 2021-03-06 16:31 | CT ---
EXAMINATION TYPE: CT abdomen pelvis w con DATE OF EXAM: 03/06/2021 COMPARISON: 03/28/2013 HISTORY: Abnormal weight loss, epigastric and pelvic pain. CT DLP: 316.9 mGycm CONTRAST: CT scan of the abdomen and pelvis is performed with Oral Contrast and with IV Contrast, patient injec evon with 100ml mL of Isovue 300. FINDINGS: LUNG BASES-: No visible nodule. No infiltrate. LIVER/GB: No calcified gallstones. No space occupying hepatic lesion. Biliary tree is of normal ca liber. PANCREAS: No inflammation. No distinct mass. SPLEEN: No splenic enlargement. No lesion seen. ADRENALS: No nodule. No thickening. KIDNEYS/BLADDER: No hydronephrosis. No nephrolithiasis. No distinct renal mass. Urinary bladder g rossly unremarkable. BOWEL: Normal appendix. Normal bowel caliber. No inflammation. GENITAL ORGANS: The uterus is heterogenous and do recommend further evaluation with pelvic ultrasoun d. No ovarian or adnexal masses seen. LYMPH NODES: No greater than 1cm abdominal or pelvic lymph nodes are appreciated. AORTA: No significant abnormality. OSSEOUS STRUCTURES: No significant abnormality is seen. OTHER: No significant additional abnormality is seen. IMPRESSION: 1. Nonspecific uterine heterogeneity. Correlate with pelvic ultrasound. Otherwise unremarkable study.
== END | disposition home or self-care (01) ==
LOC: RADCTMAIN 14:15
PROVIDERS: ATTEND Family Medicine
DX: R10.13 Epigastric pain (principal); R10.2 Pelvic and perineal pain
CPT/HCPCS: 74177; Q9967

== ENCOUNTER → 2021-03-13 | Outpatient (CLI) | payer BC ==
--- NOTE | 2021-03-13 12:55 | NM ---
EXAMINATION TYPE: NM gastric emptying static DATE OF EXAM: 03/13/2021 COMPARISON: NONE HISTORY: Early satiety, abnormal weight loss Following administration of 2.0 mCi Tc 99m Sulfur Colloid with 4 oz. egg whites, two pieces of toast, and 2 oz. of water, projection images of the abdomen were obtained 10 minutes post ingestion. Anterior posterior images were obtained. Time activity curves were generated. Patient Emptying Values 1 Hour 21 % 2 Hours 42 % 3 Hours 79 % 4 Hours 95 % Gastroesophagel reflux: None IMPRESSION: Gastric emptying: Normal Gastroesophageal reflux: None
== END | disposition home or self-care (01) ==
LOC: RADNMMAIN 07:11
PROVIDERS: ATTEND Family Medicine
DX: R68.81 Early satiety (principal); R63.4 Abnormal weight loss
CPT/HCPCS: 78264; A9541

== ENCOUNTER → 2021-05-08 | Outpatient (CLI) | payer BC ==
[2021-05-09 00:48] LABS: Gliadin AB IgA, Deaminated NEGATIVE (NEGATIVE); Gliadin AB IgA, Unit 0.3 U/mL; Gliadin AB IgG, Deaminated NEGATIVE (NEGATIVE)
== END | disposition home or self-care (01) ==
LOC: LABWHC1 16:17
PROVIDERS: ATTEND Internal Medicine Gastroenterology
DX: R63.4 Abnormal weight loss (principal)
CPT/HCPCS: 36415; 83516; 87329

== ENCOUNTER 2021-09-26 10:15 | Day surgery (SDC) | payer BC ==
[2021-09-25 08:29] VITALS: BMI 16.9
[~2021-09-26 10:15] MED LIST changes: -LIDOCAINE 1% 20 ML VIAL (10MG/ML) FOR IV START INTRADERMA PRN
[2021-09-26 10:59] VITALS: TEMP 96.8
[2021-09-26] MEDS ORDERED: LIDOCAINE 1% (10MG/ML) FOR IV START INTRADERMA ONE (10:59)
[2021-09-26] MEDS ORDERED: LIDOCAINE 1% INJ 10MG/ML (20 ML MDV) ONE (12:00)
[2021-09-26] MEDS ORDERED: PROPOFOL 10 MG/ML 20 ML VIAL IV ONE (12:00)
--- NOTE | 2021-09-26 12:22 | P.PCN ---
Date of Procedure: 09/26/21 Procedure(s) Performed: Brief history: Patient is a pleasant 56-year-old white female scheduled for an elective upper endoscopy as well as colonoscopy as a part of evaluation of abdominal pain, weight loss and screening for colon cancer Procedure performed: Esophagogastroduodenoscopy biopsy Colonoscopy Preoperative diagnosis: Abdominal pain/weight loss/screening for colon cancer Anesthesia: MAC Procedure: After informed consent was obtained from the patient was brought into the endoscopy unit and IV sedation was administered by anesthesia under continuous monitoring. Initially upper endoscopy was done. The Olympus GF 160 video endoscope was inserted inserted into the mouth and esophagus intubated without any difficulty and was gradually advanced into the stomach and duodenum and carefully examined. The bulb and second part of the duodenum appeared normal. The scope was then withdrawn into the stomach adequately insufflated with air and upon careful examination the antrum mild diffuse gastritis and biopsies were done from this area. The body, cardia and fundus appeared normal. The scope was then withdrawn into the esophagus. The GE junction was located at 40 cm to the incisors. It appeared regular with to superficial erosions consistent with LA grade B reflux esophagitis. Rest of the esophagus appeared normal. Patient tolerated the procedure well. At this time the patient continued to remain sedation. Initial digital rectal examination was normal. Olympus CF 160 video colonoscope was then inserted into the rectum and gradually advanced to the cecum without any difficulty. Careful examination was performed as the scope was gradually being withdrawn. The prep was excellent. The cecum, ascending colon, transverse colon, descending colon, sigmoid colon and rectum appeared normal. Retroflexion was performed in the rectum and no lesions were noted. Patient tolerated the procedure well. Impression: 1.. Upper Endoscopy revealed mild diffuse antral gastritis and LA grade B reflux esophagitis 2. Colonoscopy was essentially within normal limits with no evidence of colitis or colorectal neoplasia Recommendations: Findings of this examination were discussed with the patient as well as her family. She was advised to follow with the biopsy results. She was advised to have a repeat screening colonoscopy in 10 years
[2021-09-26 12:42] VITALS: BP 120/78; PULSE 90; RESP 14
== END 2021-09-26 13:24 | disposition home or self-care (01) ==
LOC: ORWHC2ENDO 10:15
PROVIDERS: ATTEND Internal Medicine Gastroenterology
DX: Z12.11 Encounter for screening for malignant neoplasm of colon (principal); K29.50 Unspecified chronic gastritis without bleeding; K21.00 Gastro-esophageal reflux disease with esophagitis, without bleeding; Z79.899 Other long term (current) drug therapy
CPT/HCPCS: 88305; 43239; J2001; J2704; G0121

== ENCOUNTER → 2021-11-21 | Outpatient (CLI) | payer BC ==
--- NOTE | 2021-11-24 12:26 | MM ---
Reason for exam: screening (asymptomatic). Last mammogram was performed 1 year and 1 month ago. History: Patient is postmenopausal. Family history of breast cancer in grandmother at age 70. Taking estrogen for 6 months. Physical Findings: A clinical breast exam by your physician is recommended on an annual basis and results should be correlated with mammographic findings. MG 3D Screening Mammo W/Cad Bilateral CC, MLO, and XCCL view(s) were taken. Prior study comparison: November 01, 2020, bilateral MG 3d screening mammo w/cad. August 03, 2019, bilateral MG 3d screening mammo w/cad. The breast tissue is heterogeneously dense. This may lower the sensitivity of mammography. No significant changes when compared with prior studies. ASSESSMENT: Benign, BI-RAD 2 RECOMMENDATION: Routine screening mammogram of both breasts in 1 year.
== END | disposition home or self-care (01) ==
LOC: RADMAMWWP 16:49
PROVIDERS: ATTEND Obstetrics & Gynecology
DX: Z12.31 Encounter for screening mammogram for malignant neoplasm of breast (principal); Z80.3 Family history of malignant neoplasm of breast; Z78.0 Asymptomatic menopausal state
CPT/HCPCS: 77063; 77067

== ENCOUNTER → 2022-06-16 | Outpatient (CLI) | payer BC ==
[2022-06-18 10:34] LABS: Candida albicans IgE Class CLASS 0
[2022-06-18 12:41] LABS: Zinc, Serum 88 ug/dL (60-130)
== END | disposition home or self-care (01) ==
LOC: LABWHC1 16:17
PROVIDERS: ATTEND Otolaryngology
DX: K14.6 Glossodynia (principal)
CPT/HCPCS: 36415; 82306; 82746; 84207; 84630; 85652; 86003; 86038; 86235

== ENCOUNTER → 2022-09-30 | Outpatient (CLI) | payer BC ==
--- NOTE | 2022-09-30 16:46 | US ---
EXAMINATION TYPE: US duplex aorta DATE OF EXAM: 09/30/2022 COMPARISON: NONE CLINICAL HISTORY: I65.23 OCCLUSION AND STENOSIS Z82.49 I700. AAA TECHNIQUE: Multiple sonographic images of the abdominal aorta are obtained. FINDINGS: EXAM MEASUREMENTS: Abdominal Aorta: Proximal: 2.3 x 1.9 cm Mid: 1.5 x 1.7 cm Distal: 1.6 x 1.7 cm Bifurcation: 0.8 x 1.0 cm x .9 x .8 cm IMPRESSION: No evidence of aortic aneurysm. Mild ectasia of the proximal abdominal aorta.
--- NOTE | 2022-09-30 16:46 | US ---
EXAMINATION TYPE: US carotid duplex BILAT DATE OF EXAM: 09/30/2022 COMPARISON: NONE CLINICAL HISTORY: I65.23 OCCLUSION AND STENOSIS Z82.49 I700. Stenosis TECHNIQUE: Carotid duplex ultrasound examination. Indirect Doppler criteria was utilized. 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 50-69% stenosis of the right carotid bifurcation by peak systolic velocity. 2. Less than 50% stenosis of the left carotid bifurcation. Criteria for Assigning % of Stenosis / Diameter reduction (Estimation based on the indirect measurements of the internal carotid artery velocities (ICA PSV). 1. Normal (no stenosis)=ICA PSV < 125 cm/s: ratio < 2.0: ICA EDV<40 cm/s. 2. Less than 50% stenosis=ICA PSV < 125 cm/s: ratio < 2.0: ICA EDV<40 cm/s. 3. 50 to 69% stenosis=ICA PSV of 125 to 230 cm/s: ration 2.0 ? 4.0: ICA EDV 40-100 cm/s. 4. Greater than 70% stenosis to near occlusion= ICA PSV > 230 cm/s: ratio > 4.0: ICA EDV > 100 cm/s. 5. Near occlusion= ICA PSV velocities may be low or undetectable: variable ratio and ICA EDV. 6. Total occlusion=unable to detect flow.
== END | disposition home or self-care (01) ==
LOC: RADUSWWP 15:07
PROVIDERS: ATTEND Family Medicine
DX: I70.0 Atherosclerosis of aorta (principal); I77.811 Abdominal aortic ectasia; Z82.49 Family history of ischemic heart disease and other diseases of the circulatory system
CPT/HCPCS: 93880; 93979

== ENCOUNTER → 2022-11-23 | Outpatient (CLI) | payer BC ==
--- NOTE | 2022-11-24 18:44 | MM ---
Reason for Exam: Screening (asymptomatic). Last screening mammogram was performed 12 month(s) ago. Patient History: Menarche at age 12. First Full-Term at age 19. Postmenopausal. Currently using Estrogen, for 6 months. Maternal grandmother had breast cancer, age 70. Risk Values: Antonella 5 year model risk: 0.9%. NCI Lifetime model risk: 5.7%. Prior Study Comparison: 08/03/2019 Bilateral Screening Mammogram, [facility]. 11/01/2020 Bilateral Screening Mammogram, [facility]. 11/21/2021 Bilateral Screening Mammogram, [facility]. Tissue Density: There are scattered fibroglandular densities. Findings: Analyzed By CAD. Prominent sternalis muscle noted on the left CC view. There is no suspicious group of microcalcifications or new suspicious mass in either breast. Overall Assessment: Benign, BI-RAD 2 Management: Screening Mammogram of both breasts in 1 year. 1. Patient should continue monthly self breast exams. 2. A clinical breast exam by your physician is recommended on an annual basis. 3. This exam should not preclude additional follow-up of suspicious palpable abnormalities. Electronically signed and approved by: Nataliya Crystal M.D. Radiologist
== END | disposition home or self-care (01) ==
LOC: RADMAMWWP 14:03
PROVIDERS: ATTEND Obstetrics & Gynecology
DX: Z12.31 Encounter for screening mammogram for malignant neoplasm of breast (principal); Z78.0 Asymptomatic menopausal state; Z80.3 Family history of malignant neoplasm of breast
CPT/HCPCS: 77063; 77067

== ENCOUNTER → 2022-11-23 | Outpatient (CLI) | payer BC ==
--- NOTE | 2022-11-23 15:41 | CT ---
EXAMINATION TYPE: CT heart w calcium score DATE OF EXAM: 11/23/2022 COMPARISON: None. HISTORY: Screening for cardiovascular disorder. 213.9 CT DLP: 67.20 mGycm Automated exposure control for dose reduction was used. CT CALCIUM SCORING Coronary calcium is a marker for plaque (fatty deposits) in a blood vessel or atherosclerosis (harden ing of the arteries). The presence and amount of calcium detected in a coronary artery by the CT sca n, indicates the presence and amount of atherosclerotic plaque. These calcium deposits appear years before the development of heart disease symptoms such as chest pain and shortness of breath. A calcium score is computed for each of the coronary arteries based upon the volume and density of th e calcium deposits. This can be referred to as your calcified plaque burden. It does not correspond directly to the percentage of narrowing in the artery but does correlate with the severity of the un derlying coronary atherosclerosis. PROCEDURE TECHNIQUE - Prospective Gating was used. Slice thickness: 3mm. Density threshold (HU): 130, Pixel threshold: 3, Algorithm: discrete. RESULTS Region: LM Calcium Score ([place]): 0 Volume (mm3): 0 Mass (g): 0 Region: RCA Calcium Score ([place]): 0 Volume (mm3): 0 Mass (g): 0 Region: LAD Calcium Score ([place]): 0 Volume (mm3): 0 Mass (g): 0 Region: CX Calcium Score ([place]): 0 Volume (mm3): 0 Mass (g): 0 Region: PDA Calcium Score ([place]): 0 Volume (mm3): 0 Mass (g): 0 Total: Calcium Score ([place]): 0 Volume (mm3): 0 Mass (g): 0 Incidental findings: Slight S-shaped scoliosis noted on localizer. IMPRESSION: Calcium Score: 0 Implication: No identifiable plaque. Risk of Coronary Artery Disease: Very low, generally less than 5%. CALCIUM SCORE IMPLICATION RISK OF C ORONARY ARTERY DISEASE 0 No identifiable plaque Very low, generally less than 5% 1-10 Minimal identifiable plaque Very unlikely, less than 10% 11-100 Definite, at least mild atherosclerotic plaque Mild or m inimal coronary narrowings likely 101-400 Definite, at least moderate atherosclerotic plaque Mild coronary ar hanh disease highly likely, significant narrowing possible 401 or Higher Extensive atherosclerotic plaque High lik elihood of at least one significant coronary narrowing
== END | disposition home or self-care (01) ==
LOC: RADCTMAIN 14:22
PROVIDERS: ATTEND Family Medicine
DX: Z13.6 Encounter for screening for cardiovascular disorders (principal); I70.0 Atherosclerosis of aorta; I25.10 Atherosclerotic heart disease of native coronary artery without angina pectoris; I65.23 Occlusion and stenosis of bilateral carotid arteries; Z82.49 Family history of ischemic heart disease and other diseases of the circulatory system
CPT/HCPCS: 75571

== ENCOUNTER → 2023-07-06 | Outpatient (CLI) | payer BC ==
--- NOTE | 2023-07-07 09:16 | XR ---
EXAMINATION TYPE: XR foot complete LT DATE OF EXAM: 07/06/2023 COMPARISON: NONE HISTORY: Pain TECHNIQUE: Three views are submitted. FINDINGS: There is an angulated mildly displaced fracture of the soft tissue edema proximal phalanx fifth digit . Subtle deformity involving the proximal phalanx of the fourth digit also suspicious for hairline no ndisplaced fracture. Diffuse osteopenia. Remaining osseous structures intact. IMPRESSION: 1. Angulated mildly displaced fracture proximal phalanx fifth digit. Subtle deformity involving the p roximal phalanx of the fourth digit also suspicious for hairline nondisplaced fracture.
== END | disposition home or self-care (01) ==
LOC: RADXRYALE 16:14
PROVIDERS: ATTEND Physician Assistant Medical
DX: S92.512A Displaced fracture of proximal phalanx of left lesser toe(s), initial encounter for closed fracture (principal); S90.922A Unspecified superficial injury of left foot, initial encounter

== ENCOUNTER → 2023-09-24 | Outpatient (CLI) | payer BC ==
--- NOTE | 2023-09-24 11:22 | US ---
EXAMINATION TYPE: US arterial LE single level DATE OF EXAM: 09/24/2023 11:04 AM CLINICAL INDICATION: Female, 58 years old with history of I73.89 OTHER SPECIFIED PERIPHERAL VASCULAR DISEASE; cold feet, no claudication History of: Smoker: N Hypertension: N Diabetic: N Hyperlipidemia: N TIA/CVA: N Previous Vascular Surgery: N CAD: N MO: N Vascular Ulcers: N Claudication: N Gangrene: N Doppler Waveforms: Right: Multiphasic Left: Multiphasic Right Brachial Pressure: 129 Left Brachial Pressure: 135 Ankle-Brachial Indices: Right: 1.1 Left: 1.1 Toe Brachial Indices: Right: 0.8 Left: 0.8 IMPRESSION: Normal ankle-brachial indices bilaterally.
== END | disposition home or self-care (01) ==
LOC: RADUSWWP 10:19
PROVIDERS: ATTEND Family Medicine
DX: I73.89 Other specified peripheral vascular diseases (principal)
CPT/HCPCS: 93922

== ENCOUNTER → 2023-10-01 | Outpatient (CLI) | payer BC ==
--- NOTE | 2023-10-01 13:32 | MM ---
Reason for Exam: Clinical finding. Last screening mammogram was performed 10 month(s) ago. Patient History: Menarche at age 12. First Full-Term at age 19. Postmenopausal. Currently using Estrogen, for 6 months. Maternal grandmother had breast cancer, age 70. Risk Values: Antonella 5 year model risk: 1.0%. NCI Lifetime model risk: 5.6%. Prior Study Comparison: 11/01/2020 Bilateral Screening Mammogram, [facility]. 11/21/2021 Bilateral Screening Mammogram, [facility]. 11/23/2022 Bilateral MG 3D screening mammo w/cad, [facility]. Tissue Density: Right: The breast tissue is heterogeneously dense. This may lower the sensitivity of mammography. Findings: Analyzed By CAD. Asymmetry appreciated in the upper aspect on MLO view 4.6 cm nipple measuring 7 x 5 mm and is likely in the lateral aspect of the left breast in CC view. Overall Assessment: Incomplete: need additional imaging evaluation, BI-RAD 0 Management: Diagnostic Breast Ultrasound of the right breast. Results were given to the patient verbally at the time of exam. Patient should continue monthly self-breast exams. A clinical breast exam by your physician is recommended on an annual basis. This exam should not preclude additional follow-up of suspicious palpable abnormalities. Note on Antonella scores and lifetime risk: 1. A Antonella score greater than 3% is considered moderate risk. If this is the case, consider specialist referral to assess eligibility for a risk reducing agent. 2. If overall lifetime risk for the development of breast cancer is 20% or higher, the patient may qualify for future screening with alternating mammogram and breast MRI. Electronically signed and approved by: Tom Grigsby DO
--- NOTE | 2023-10-01 14:00 | USB ---
Reason for Exam: Clinical finding. Patient History: Menarche at age 12. First Full-Term at age 19. Postmenopausal. Currently using Estrogen, for 6 months. Maternal grandmother had breast cancer, age 70. Risk Values: Antonella 5 year model risk: 1.0%. NCI Lifetime model risk: 5.6%. Technique: Method: Targeted. Prior Study Comparison: 11/01/2020 Bilateral Screening Mammogram, [facility]. 11/21/2021 Bilateral Screening Mammogram, [facility]. 11/23/2022 Bilateral MG 3D screening mammo w/cad, [facility]. Findings: The upper outer quadrant of the right breast, the axilla of the right breast and the retroareolar of the right breast were scanned. Technique utilized:US breast limited RT Image; Ultrasound imaging of: Area of concern, retroareolar region and axilla. No evidence for organizing fluid collection or mass. Palpable abnormality is 12 cm from nipple near the clavicle there is muscle in this general area. No suspicious masses or organizing fluid collection. Overall Assessment: Benign, BI-RAD 2 Management: Screening Mammogram of both breasts in 1 year. A clinical breast exam by your physician is recommended on an annual basis and results should be correlated with mammographic findings. This exam should not preclude additional follow-up of suspicious palpable abnormalities. Results were given to the patient verbally at the time of exam. Electronically signed and approved by: Tom Grigsby DO
== END | disposition home or self-care (01) ==
LOC: RADMAMWWP 13:00
PROVIDERS: ATTEND Family Medicine
DX: R92.331 Mammographic heterogeneous density, right breast (principal); N63.11 Unspecified lump in the right breast, upper outer quadrant; Z78.0 Asymptomatic menopausal state; Z80.3 Family history of malignant neoplasm of breast
CPT/HCPCS: 77061; 77065

== ENCOUNTER → 2024-02-07 | Outpatient (CLI) | payer BC ==
--- NOTE | 2024-02-11 09:48 | MM ---
Reason for Exam: Screening (asymptomatic). Last mammogram was performed 1 year(s) and 2 month(s) ago. Patient History: Menarche at age 12. First Full-Term at age 19. Postmenopausal. Currently using Estrogen, for 6 months. Maternal grandmother had breast cancer, age 70. Risk Values: Antonella 5 year model risk: 1.0%. NCI Lifetime model risk: 5.6%. Prior Study Comparison: 11/21/2021 Bilateral Screening Mammogram, [facility]. 11/23/2022 Bilateral MG 3D screening mammo w/cad, [facility]. 10/01/2023 Right MG 3D diag mammo w/cad RT, [facility]. Tissue Density: The breasts are heterogeneously dense, which may obscure small masses. Findings: Analyzed By CAD. There is no suspicious group of microcalcifications or new suspicious mass in either breast. Overall Assessment: Benign, BI-RAD 2 Management: Screening Mammogram of both breasts in 1 year. . Patient should continue monthly self-breast exams. A clinical breast exam by your physician is recommended on an annual basis. This exam should not preclude additional follow-up of suspicious palpable abnormalities. Note on Antonella scores and lifetime risk: 1. A Antonella score greater than 3% is considered moderate risk. If this is the case, consider specialist referral to assess eligibility for a risk reducing agent. 2. If overall lifetime risk for the development of breast cancer is 20% or higher, the patient may qualify for future screening with alternating mammogram and breast MRI. Electronically signed and approved by: Bal Chavarria M.D. Radiologis
== END | disposition home or self-care (01) ==
LOC: RADMAMWWP 15:32
PROVIDERS: ATTEND Obstetrics & Gynecology
DX: Z12.31 Encounter for screening mammogram for malignant neoplasm of breast (principal); Z78.0 Asymptomatic menopausal state; Z80.3 Family history of malignant neoplasm of breast
CPT/HCPCS: 77063; 77067

== ENCOUNTER 2024-05-31 14:31 | Emergency (ER) | payer BC ==
--- NOTE | 2024-05-31 15:05 | ED ---
General Adult HPI - General Source: patient, RN notes reviewed Mode of arrival: ambulatory Limitations: no limitations <Nikunj Menchaca - Last Filed: 05/31/24 15:00> <Maxine Markham - Last Filed: 06/05/24 11:44> - General Chief complaint: Recheck/Abnormal Lab/Rx Stated complaint: UTI Time Seen by Provider: 05/31/24 14:39 - History of Present Illness Initial comments: Quick [id number] female presents emergency department from PCPs office for treatment of UTI. Patient has been on 2 rounds antibiotics urine culture shows multiresistant organism. Patient has been taking antibiotics with no improvement. (Nikunj Menchaca) 58-year-old female presents emergency department reporting UTI symptoms. States that she has had burning and increased frequency of urination. She saw her primary care doctor and has been on 2 different antibiotics. She received a urine culture today that stated that she had Proteus in her sample and she needed IV antibiotics. Patient presents to the emergency department because of these cultures. She denies fevers. No nausea or vomiting. Denies any changes in her bowel habits. No other alleviating, precipitating modifying factors (Maxine Markham) - Related Data Home Medications Medication Instructions Recorded Confirmed Estrogens, Conjugated Cream 1 gm TOPICAL DAILY 03/03/21 09/25/21 [Premarin Cream] Progesterone, Micronized 100 mg PO HS 03/03/21 09/25/21 [Progesterone] Estradiol Vag 1 applicate VAGINAL DIRECTED 09/25/21 09/25/21 Marshmellow 1 tab PO DAILY 09/25/21 09/25/21 Venlafaxine HCl [Effexor] 37.5 mg PO QAM 09/25/21 09/25/21 cycloSPORINE [Restasis] 1 applicator BOTH EYES BID 09/25/21 09/25/21 Allergies Allergy/AdvReac Type Severity Reaction Status Date / Time No Known Allergies Allergy Verified 05/31/24 14:53 Review of Systems ROS Other: All systems not noted in ROS Statement are negative. <Nikunj Menchaca - Last Filed: 05/31/24 15:00> ROS Other: All systems not noted in ROS Statement are negative. <Maxine Markham - Last Filed: 06/05/24 11:44> ROS Statement: Those systems with pertinent positive or pertinent negative responses have been documented in the HPI. Past Medical History Past Medical History: GERD/Reflux Additional Past Medical History / Comment(s): hx frequent bladder infection, hiatal hernia, migraines, hiatal hernia, History of Any Multi-Drug Resistant Organisms: None Reported Past Surgical History: Bladder Surgery, Tubal Ligation Additional Past Surgical History / Comment(s): MONARC PROCEDURE, CYSTOSCOPY, bladder sling, colonoscopy,glaucoma procedures x2 Past Anesthesia/Blood Transfusion Reactions: Family History of Problems w/ Anesthesia, Postoperative Nausea & Vomiting (PONV) Additional Past Anesthesia/Blood Transfusion Reaction / Comment(s): stated "son heart stopped during hernia repair-discharged home same day" Past Psychological History: Depression Smoking Status: Never smoker Past Alcohol Use History: None Reported Past Drug Use History: None Reported - Past Family History Father Additional Family Medical History / Comment(s): carotid artery disease. No family history of coronary artery disease Mother Family Medical History: Cancer Son(s) Family Medical History: Cancer <Nikunj Menchaca - Last Filed: 05/31/24 15:00> General Exam Limitations: no limitations <Nikunj Menchaca - Last Filed: 05/31/24 15:00> General appearance: alert, in no apparent distress Head exam: Present: atraumatic, normocephalic, normal inspection Eye exam: Present: normal appearance, PERRL, EOMI. Absent: scleral icterus, conjunctival injection, periorbital swelling ENT exam: Present: normal exam, mucous membranes moist Neck exam: Present: normal inspection. Absent: tenderness, meningismus, lymphadenopathy Respiratory exam: Present: normal lung sounds bilaterally. Absent: respiratory distress, wheezes, rales, rhonchi, stridor Cardiovascular Exam: Present: regular rate, normal rhythm, normal heart sounds. Absent: systolic murmur, diastolic murmur, rubs, gallop, clicks GI/Abdominal exam: Present: soft, normal bowel sounds. Absent: distended, tenderness, guarding, rebound, rigid Extremities exam: Present: normal inspection, full ROM, normal capillary refill. Absent: tenderness, pedal edema, joint swelling, calf tenderness Back exam: Present: normal inspection Neurological exam: Present: alert, oriented X3, CN II-XII intact Psychiatric exam: Present: normal affect, normal mood Skin exam: Present: warm, dry, intact, normal color. Absent: rash <Maxine Markham - Last Filed: 06/05/24 11:44> - General Exam Comments Initial Comments: Visual Physical Exam Vital signs reviewed General: Well-appearing, nontoxic, no acute distress. Head: Normocephalic, atraumatic Eyes: PERRLA, EOMI ENT: Airway patent Chest: Nonlabored breathing Skin: No visual rash, normal skin tone Neuro: Alert and oriented 3 Musculoskeletal: No gross abnormalities (Nikunj Menchaca) Course Vital Signs 05/31/24 05/31/24 05/31/24 14:51 17:19 18:59 Temperature 97.9 F 98.4 F 98.4 F Pulse Rate 73 70 81 Respiratory 20 18 Rate Blood Pressure 127/81 121/68 126/67 O2 Sat by Pulse 97 100 99 Oximetry Medical Decision Making <Nikunj Menchaca - Last Filed: 05/31/24 15:00> - Lab Data Result diagrams: 05/31/24 15:38 05/31/24 15:38 <Maxine Markham - Last Filed: 06/05/24 11:44> - Medical Decision Making I completed the quick note portion of this chart signed Nikunj Menchaca PA-C (Nikunj Menchaca) Was pt. sent in by a medical professional or institution ([facility], [employer], urgent care, hospital, or [facility]...) When possible be specific @ -Patient was sent in from her primary care office home Did you speak to anyone other than the patient for history (EMS, parent, family, police, friend...)? What history was obtained from this source @ -No Did you review nursing and triage notes (agree or disagree)? Why? @ -I reviewed and agree with nursing and triage notes Were old charts reviewed (outside hosp., previous admission, EMS record, old EKG, old radiological studies, urgent care reports/EKG's, [facility] records)? Report findings @ -I reviewed the urine culture that came from the patient's primary care office Differential Diagnosis (chest pain, altered mental status, abdominal pain women, abdominal pain men, vaginal bleeding, weakness, fever, dyspnea, syncope, headache, dizziness, GI bleed, back pain, seizure, CVA, palpatations, mental health, musculoskeletal)? @ -Differential Abdominal Pain Women: Appendicitis, Cholecystitis, diverticulosis, ischemic bowel, pancreatitis, hepatitis, UTI, gastroenteritis, AAA, incarcerated hernia, bowel obstruction, constipation, inflammatory bowel, hepatitis, peptic ulcer disease, splenic infarction, perforated viscus, vulvitis, ovarian torsion, PID, kidney stone, placenta abruption, this is not meant to be an all-inclusive list EKG interpreted by me (3pts min.). @ -Not done X-rays interpreted by me (1pt min.). @ -None done CT interpreted by me (1pt min.). @ -None done U/S interpreted by me (1pt. min.). @ -None done What testing was considered but not performed or refused? (CT, X-rays, U/S, labs)? Why? @ -None What meds were considered but not given or refused? Why? @ -None Did you discuss the management of the patient with other professionals (professionals i.e. , PA, [employer], lab, RT, psych nurse, social media marketing analyst, program instructor, teacher, chemical instrumentation officer, pillowcase sewer)? Give summary @ -I spoke with Dr. Graham. He feels as if the specimen from the patient's office is a contamination. Our UA is negative at this time and he does not feel that the patient needs to be on antibiotics. Specimen will be sent for culture home Was smoking cessation discussed for >3mins.? @ -No Was critical care preformed (if so, how long)? @ -No Were there social determinants of health that impacted care today? How? (Homelessness, low income, unemployed, alcoholism, drug addiction, transportation, low edu. Level, literacy, decrease access to med. care, halfway, rehab)? @ -No Was there de-escalation of care discussed even if they declined (Discuss DNR or withdrawal of care, Hospice)? DNR status @ -No What co-morbidities impacted this encounter? (DM, HTN, Smoking, COPD, CAD, Cancer, CVA, ARF, Chemo, Hep., AIDS, mental health diagnosis, sleep apnea, morbid obesity)? @ -Multiple UTIs Was patient admitted / discharged? Hospital course, mention meds given and route, prescriptions, significant lab abnormalities, going to OR and other pertinent info. @ -Upon arrival patient seen and evaluated in room 31. Thorough history and physical exam was performed. Patient does provide a urine sample which is completely negative at this time. I did call and speak with Dr. Graham. He feels as if the patient specimen from office is a contamination. He does not feel that the patient needs antibiotics at this time. Patient did receive 1 dose of Zosyn because of symptoms. Her specimen will be sent for culture. Patient will be called with culture results if they are positive. She was agreeable to this and discharged in stable condition Undiagnosed new problem with uncertain prognosis? @ -No Drug Therapy requiring intensive monitoring for toxicity (Heparin, Nitro, Insulin, Cardizem)? @ -No Were any procedures done? @ -No Diagnosis/symptom? @ -Acute dysuria, history of multiple UTIs Acute, or Chronic, or Acute on Chronic? @ -Acute Uncomplicated (without systemic symptoms) or Complicated (systemic symptoms)? @ -Complicated Side effects of treatment? @ -No Exacerbation, Progression, or Severe Exacerbation? @ -No Poses a threat to life or bodily function? How? (Chest pain, [place], [place], pneumonia, PE, COPD, DKA, ARF, appy, cholecystitis, CVA, Diverticulitis, Homicidal, Suicidal, threat to staff... and all critical care pts) @ -No (Maxine Markham) - Lab Data Lab Results 05/31/24 05/31/24 05/31/24 Range/Units 15:17 15:38 15:38 WBC 5.9 (3.8-10.6) k/uL RBC 4.60 (3.80-5.40) m/uL Hgb 13.7 (11.4-16.0) gm/dL Hct 42.3 (34.0-46.0) % MCV 91.9 (80.0-100.0) fL MCH 29.9 (25.0-35.0) pg MCHC 32.5 (31.0-37.0) g/dL RDW 12.5 (11.5-15.5) % Plt Count 213 (150-450) k/uL MPV 8.3 Neutrophils % 65 % Lymphocytes % 22 % Monocytes % 7 % Eosinophils % 3 % Basophils % 1 % Neutrophils # 3.8 (1.3-7.7) k/uL Lymphocytes # 1.3 (1.0-4.8) k/uL Monocytes # 0.4 (0-1.0) k/uL Eosinophils # 0.2 (0-0.7) k/uL Basophils # 0.0 (0-0.2) k/uL Sodium 139 (137-145) mmol/L Potassium 3.9 (3.5-5.1) mmol/L Chloride 107 (98-107) mmol/L Carbon Dioxide 24 (22-30) mmol/L Anion Gap 8 mmol/L BUN 14 (7-17) mg/dL Creatinine 0.54 (0.52-1.04) mg/dL Est GFR (CKD-EPI)AfAm >90 (>60 ml/min/1.73 sqM) Est GFR (CKD-EPI)NonAf >90 (>60 ml/min/1.73 sqM) Glucose 81 (74-99) mg/dL Plasma Lactic Acid Zhen (0.7-2.0) mmol/L Calcium 9.9 (8.4-10.2) mg/dL Total Bilirubin 2.8 H (0.2-1.3) mg/dL AST 27 (14-36) U/L ALT 18 (4-34) U/L Alkaline Phosphatase 57 (38-126) U/L Total Protein 7.9 (6.3-8.2) g/dL Albumin 4.7 (3.5-5.0) g/dL Urine Color Colorless Urine Appearance Clear (Clear) Urine pH 6.0 (5.0-8.0) Ur Specific [place] 1.005 (1.001-1.035) Urine Protein Negative (Negative) Urine Glucose (UA) Negative (Negative) Urine Ketones Negative (Negative) Urine Blood Negative (Negative) Urine Nitrite Negative (Negative) Urine Bilirubin Negative (Negative) Urine Urobilinogen <2.0 (<2.0) mg/dL Ur Leukocyte Esterase Negative (Negative) 05/31/24 Range/Units 15:38 WBC (3.8-10.6) k/uL RBC (3.80-5.40) m/uL Hgb (11.4-16.0) gm/dL Hct (34.0-46.0) % MCV (80.0-100.0) fL MCH (25.0-35.0) pg MCHC (31.0-37.0) g/dL RDW (11.5-15.5) % Plt Count (150-450) k/uL MPV Neutrophils % % Lymphocytes % % Monocytes % % Eosinophils % % Basophils % % Neutrophils # (1.3-7.7) k/uL Lymphocytes # (1.0-4.8) k/uL Monocytes # (0-1.0) k/uL Eosinophils # (0-0.7) k/uL Basophils # (0-0.2) k/uL Sodium (137-145) mmol/L Potassium (3.5-5.1) mmol/L Chloride (98-107) mmol/L Carbon Dioxide (22-30) mmol/L Anion Gap mmol/L BUN (7-17) mg/dL Creatinine (0.52-1.04) mg/dL Est GFR (CKD-EPI)AfAm (>60 ml/min/1.73 sqM) Est GFR (CKD-EPI)NonAf (>60 ml/min/1.73 sqM) Glucose (74-99) mg/dL Plasma Lactic Acid Zhen 0.7 (0.7-2.0) mmol/L Calcium (8.4-10.2) mg/dL Total Bilirubin (0.2-1.3) mg/dL AST (14-36) U/L ALT (4-34) U/L Alkaline Phosphatase (38-126) U/L Total Protein (6.3-8.2) g/dL Albumin (3.5-5.0) g/dL Urine Color Urine Appearance (Clear) Urine pH (5.0-8.0) Ur Specific [place] (1.001-1.035) Urine Protein (Negative) Urine Glucose (UA) (Negative) Urine Ketones (Negative) Urine Blood (Negative) Urine Nitrite (Negative) Urine Bilirubin (Negative) Urine Urobilinogen (<2.0) mg/dL Ur Leukocyte Esterase (Negative) Disposition <Nikunj Menchaca - Last Filed: 05/31/24 15:00> Is patient prescribed a controlled substance at d/c from ED?: No Time of Disposition: 18:05 <Maxine Markham - Last Filed: 06/05/24 11:44> Clinical Impression: Dysuria, MDRO (multiple drug resistant organisms) resistance Disposition: HOME SELF-CARE Condition: Stable Instructions (If sedation given, give patient instructions): Dysuria (ED) Additional Instructions: Your sample will be sent for culture. We will call you with the results if they are positive. At this time we say no further antibiotics until the culture result comes back. Referrals: Nikunj Reilly DO [Primary Care Provider] - 1-2 days Mirtha Graham MD [STAFF PHYSICIAN] - 1-2 days
[2024-05-31 15:25] LABS: Appearance,Urine Clear (Clear); Bilirubin,Urine Negative (Negative); Blood,Urine Negative (Negative); Color,Urine Colorless; Glucose,Urine (UA) Negative (Negative); Ketones,Urine Negative (Negative); Leukocyte Esterase,Urine Negative (Negative); Nitrite,Urine Negative (Negative); Protein,Urine Negative (Negative); Specific Gravity,Urine 1.005 (1.001-1.035); Urobilinogen,Urine <2.0 mg/dL (<2.0)
[2024-05-31 16:01] LABS: Basophils % (A) 1 %; Eosinophils # (A) 0.2 k/uL (0-0.7); Eosinophils % (A) 3 %; HCT 42.3 % (34.0-46.0); HGB 13.7 gm/dL (11.4-16.0); Lymphocytes # (A) 1.3 k/uL (1.0-4.8); Lymphocytes % (A) 22 %; MCH 29.9 pg (25.0-35.0); MCHC 32.5 g/dL (31.0-37.0); MCV 91.9 fL (80.0-100.0); Mean Platelet Volume 8.3; Monocytes # (A) 0.4 k/uL (0-1.0); Monocytes % (A) 7 %; Neutrophils # (A) 3.8 k/uL (1.3-7.7); Neutrophils % (A) 65 %; Platelet Count 213 k/uL (150-450); RDW 12.5 % (11.5-15.5); WBC 5.9 k/uL (3.8-10.6)
[2024-05-31 16:26] LABS: ALT 18 U/L (4-34); AST 27 U/L (14-36); African American GFR (CKD) >90 (>60 ml/min/1.73 sqM); Albumin 4.7 g/dL (3.5-5.0); Alkaline Phosphatase 57 U/L (38-126); Anion Gap 8 mmol/L; Blood Urea Nitrogen 14 mg/dL (7-17); Calcium 9.9 mg/dL (8.4-10.2); Carbon Dioxide 24 mmol/L (22-30); Chloride 107 mmol/L (98-107); Glucose 81 mg/dL (74-99); Non-African American GFR(CKD) >90 (>60 ml/min/1.73 sqM); Potassium 3.9 mmol/L (3.5-5.1); Sodium 139 mmol/L (137-145); Total Bilirubin 2.8 mg/dL (0.2-1.3); Total Protein 7.9 g/dL (6.3-8.2)
[2024-05-31] MEDS: PIPERACILLIN-TAZOBACTAM 3.375 GM in SODIUM CHLORIDE 0.9% 100 ML IVPB SCH (16:41)
[2024-05-31 17:19] VITALS: TEMP 98.4
[2024-05-31 19:00] VITALS: BP 126/67; PULSE 81; RESP 18
== END 2024-05-31 18:59 | disposition home or self-care (01) ==
LOC: EC 14:31
DX: R30.0 Dysuria (principal); Z16.24 Resistance to multiple antibiotics; Z87.440 Personal history of urinary (tract) infections
CPT/HCPCS: 36415; 80053; 83605; 85025; 81003; 87040; 87086; 99284; 96365; 96366; J2543

== ENCOUNTER → 2024-07-03 | Outpatient (CLI) | payer BC ==
--- NOTE | 2024-07-28 12:07 | XR ---
Report Patient: Marilee Francisco Ordering Physician: Unknown, Unknown ID: [id number] Phone, Pager: Phone: N/A Pager: N/A : 1965 Age/Gender: 58Y, F Primary Location: N/A Procedure: XR abdomen 1V Study Date: 07/03/2024 1:47:00 PM EXAMINATION TYPE: XR abdomen 1V DATE OF EXAM: 07/08/2024 Comparison: None Clinical History: 58-year-old female left flank pain, UTI for one week Findings: There is rightward truncal shift or levoconvex scoliosis at the lower lumbar spine. There is a 5 mm c alcification at the left paramedian mid pelvis. The location favors a phlebolith rather than a distal ureteral stone. Scattered mild stool. No dilated small bowel loops. Impression: A 5 mm left paramedian mid pelvic calcification favored to represent a phlebolith. Too medially locat ed for a distal ureteral stone. Mild stool burden.
== END | disposition home or self-care (01) ==
LOC: RADXRYALE 13:40
PROVIDERS: ATTEND Physician Assistant
DX: I87.8 Other specified disorders of veins (principal); N20.1 Calculus of ureter; M41.86 Other forms of scoliosis, lumbar region
CPT/HCPCS: 74018

== ENCOUNTER → 2024-08-30 | Outpatient (CLI) | payer BC ==
--- NOTE | 2024-08-30 13:59 | US ---
EXAMINATION TYPE: US kidneys/renal and bladder DATE OF EXAM: 08/30/2024 COMPARISON: NONE CLINICAL INDICATION: Female, 59 years old with history of N39.0 UTI; UTI TECHNIQUE: Grayscale and color Doppler imaging of the bilateral kidneys and urinary bladder: FINDINGS: EXAM MEASUREMENTS: Right Kidney: 10.2x4.1x5.9 cm Left Kidney: 11.2x5.9x4.4 cm Right Kidney: No hydronephrosis or masses seen Left Kidney: No hydronephrosis or masses seen Bladder: wnl Bilateral Jets seen: Yes There is no evidence for hydronephrosis at this point in time. Corticomedullary differentiation is ma intained. No nephrolithiasis is seen. No masses are identified. The urinary bladder demonstrates so me possible debris. No significant wall thickening identified. Bilateral ureteral jets are seen. IMPRESSION: 1. No hydronephrosis or nephrolithiasis. 2. Possible debris within the urinary bladder. Correlate with urinalysis. [facility], , 08/30/2024 1:56 PM
== END | disposition home or self-care (01) ==
LOC: RADUSWWP 13:13
PROVIDERS: ATTEND Urology
DX: N39.0 Urinary tract infection, site not specified (principal)
CPT/HCPCS: 76770